=== PATIENT | male | born 2000 | race African-American/Black ===

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

== ENCOUNTER 2022-06-12 14:11 | Emergency (ER) | payer MEDICAID, OTHER ==
[~2022-06-12] VITALS: Ht 177.8 cm; Wt 68.0 kg
[2022-06-12] MEDS ORDERED: MORPHINE SULFATE 4 MG/ML CPJ (NOT FOR IM USE) IV STA (14:35)
[2022-06-12] MEDS ORDERED: ONDANSETRON HCL 4MG/2ML INJ IV STA (14:35)
[2022-06-12] MEDS ORDERED: SODIUM CHLORIDE 0.9% 1,000 ML IV ONE (14:45)
[2022-06-12] MEDS ORDERED: ETOMIDATE 2MG/ML 10ML VIAL IV ONE ×2 (14:45→19:00)
[2022-06-12] MEDS ORDERED: MIDAZOLAM HCL 2 MG/2 ML VIAL IV ONE (15:45)
[2022-06-12] MEDS ORDERED: FENTANYL CITRATE/PF 50MCG/ML 2ML VIAL IV ONE ×2 (15:45→16:00)
[2022-06-12] MEDS ORDERED: PROPOFOL 200MG/20ML VIAL IV ONE (15:45)
[2022-06-12 16:01] VITALS: BP 115/77
[2022-06-12] MEDS ORDERED: IBUP-2029 MT (18:46)
== END 2022-06-12 19:05 | disposition home or self-care (01) ==
LOC: ER 14:14
DX: S43.004A Unspecified dislocation of right shoulder joint, initial encounter (principal); V49.49XA Driver injured in collision with other motor vehicles in traffic accident, initial encounter; Y93.89 Activity, other specified; Y92.89 Other specified places as the place of occurrence of the external cause; Y99.8 Other external cause status; Z90.49 Acquired absence of other specified parts of digestive tract
CPT/HCPCS: 23650; 73030; 96361; 96374; 96375; 99152; 99285; J2250; J2270; J2405; J2704; J3010; J3490; J7030; A4565; L3670

== ENCOUNTER 2023-04-12 19:42 | Emergency (ER) | payer SELFPAY ==
[~2023-04-12] VITALS: Ht 188 cm; Wt 77.0 kg
[~2023-04-12 19:42] MED LIST: IBUP-2029 MT
[2023-04-12 19:57] VITALS: O2SAT 100
[2023-04-12] MEDS: FENTANYL CITRATE/PF 50MCG/ML 2ML VIAL IM ONE (21:23)
[2023-04-12] MEDS: ONDANSETRON HCL 4MG/2ML INJ IV ONE (21:24)
[2023-04-12] MEDS: PROPOFOL 200MG/20ML VIAL IV ONE (21:24)
[2023-04-12 22:11] VITALS: BP 112/77; PULSE 53; RESP 20; TEMP 98.2
== END 2023-04-12 22:40 | disposition home or self-care (01) ==
LOC: ER 19:42
DX: S43.014A Anterior dislocation of right humerus, initial encounter (principal); Z90.49 Acquired absence of other specified parts of digestive tract; X58.XXXA Exposure to other specified factors, initial encounter; Y93.89 Activity, other specified; Y92.89 Other specified places as the place of occurrence of the external cause; Y99.8 Other external cause status
CPT/HCPCS: 99285; 23650; 96374; 73030; 93005; 96372; 99152; J3010; J2405; J2704